=== PATIENT | male | born 1940 | race Caucasian/White ===

== ENCOUNTER 2017-09-20 10:05 | Inpatient (IN) | payer MEDICARE ==
[~2017-09-20] VITALS: Ht 182.9 cm; Wt 94.8 kg
[~2017-09-20 10:05] MED LIST: ADULT LOW DOSE81 MG PO; CARISOPRODOL 3350 MG PO; CENTRUM CARDIO1 EACH PO; CINNAMON; CIPROFLOXACIN500 M1 PO; GLUCOSA-CHOND-1 EACH; GLUCOSAMINE &1 EACH PO; GLYBURIDE 5 MG T5 M1 PO; LIPITOR; LIPITOR80 MG PO; METFORMIN HCL500 MG PO; NAPROSYN500 MG PO; NORCO 5-325 TA1 EACH PO; TRICOR; TRICOR145 MG PO; ZETIA10 MG PO; [UNRECOGNIZED DRUG - OTHER]
[2017-09-20 10:22] VITALS: BP 125/64
[2017-09-20] MEDS ORDERED: LEVOTHYROXINE100 MC1 PO (10:26)
[2017-09-20 10:57] LABS: INFLUENZA A ANTIGEN None Detected (None Detect); INFLUENZA B ANTIGEN None Detected (None Detect)
[2017-09-20 11:02] LABS: MCH 28.9 pg (26.0-34.0); MCHC 34.1 g/dL (28.0-37.0); MCV 84.5 fL (80.0-100.0); MPV 10.2 fl. (7.2-11.1); NUCLEATED RBCS 0 /100WBC; RDW-CV 14.9 % (10.5-14.5); WBC 9.2 thou/uL (4.0-11.0)
[2017-09-20 11:12] LABS: CALCIUM 9.2 mg/dL (8.5-10.1); CREATININE 1.2 mg/dL (0.6-1.3); POTASSIUM 3.8 mmol/L (3.5-5.1)
[2017-09-20 11:18] LABS: ALBUMIN 2.6 g/dL (3.4-5.0); MAGNESIUM 1.9 mg/dL (1.8-2.4); PHOSPHORUS* 3.8 mg/dL (2.5-4.9); TOTAL BILIRUBIN 4.5 mg/dL (<0.1-1.0); TOTAL PROTEIN 6.7 g/dL (6.4-8.2); TROPONIN-I LEVEL 0.32 ng/mL (<0.06)
[2017-09-20 11:26] LABS: ABSOLUTE EOSINOPHILS 0.1 thou/uL (0.0-0.7); ABSOLUTE LYMPHOCYTES 0.6 thou/uL (0.8-5.3); ABSOLUTE MONOCYTES 0.2 thou/uL (0.0-1.2); ABSOLUTE NEUTROPHILS 8.4 thou/uL (1.6-8.1); ATYPICAL LYMPHS 2 %
[2017-09-20 11:27] LABS: LARGE PLATELETS OCCASIONAL; PLATELET ESTIMATE DECREASED
[2017-09-20 12:18] LABS: PLATELET COUNT* 83 thou/uL (150-400)
[2017-09-20 14:33] LABS: URINE BLOOD 1+ (Negative); URINE CLARITY CLEAR; URINE COLOR YELLOW; URINE GLUCOSE-RANDOM 2+ (Negative); URINE KETONES NEGATIVE (Negative); URINE LEUKOCYTES-REFLEX NEGATIVE (Negative); URINE NITRITE-REFLEX NEGATIVE (Negative); URINE PROTEIN TRACE (Negative); URINE SPECIFIC GRAVITY <= 1.005 (1.005-1.030)
[2017-09-20 14:35] LABS: URINE BILIRUBIN 2+ (Negative)
[2017-09-20 14:36] LABS: ICTOTEST (BILI CONFIRMATORY) Positive (Negative)
[2017-09-20 14:45] LABS: BACTERIA-REFLEX None Seen /HPF (None Seen); HYALINE CASTS 0-3 Few /LPF (None Seen); URINE RBC 0-2 Rare /HPF (0-2); URINE WBC-REFLEX None Seen /HPF (0-5)
[2017-09-20 15:35] VITALS: BP 139/77
[2017-09-20 15:40] VITALS: BP 141/77
[2017-09-20] MEDS ORDERED: FISH OIL 1,001000 M2 PO (16:08)
--- NOTE | 2017-09-20 16:33 | EKG ---
[place] [address] ELECTROCARDIOGRAM REPORT Name: MANI ALANIZ Room: [address] ADM IN .R.#: [id number] Admission: 09/20/17 Attend Phys: Chayo Liao Discharge: Date of : 38 Report #: [id number] THIS REPORT FOR: //name// [facility] ED Test Date: 2017-09-20 Test Time: 10:39:19 Pat Name: MANI ALANIZ Department: Room: [facility] Gender: M Billing Checker: [place] : 1940 Requested By: Fuad Singleton Order Number: [id number] MD: Onesimo Plasencia Measurements Intervals [place] Rate: 72 P: 33 VA: 154 QRS: 58 QRSD: 124 T: 52 QT: 420 QTc: 460 Interpretive Statements Sinus rhythm Ventricular premature complex Probable left atrial enlargement Nonspecific intraventricular conduction delay Inferior infarct, old Compared to ECG 11/19/2009 17:34:14 Ventricular premature complex(es) now present Intraventricular conduction delay now present Myocardial infarct finding still present Electronically Signed On 09-20-2017 16:33:35 PRODUCT ENGINEER by Onesimo Plasencia [email or web address] <ELECTRONICALLY SIGNED> By: Onesimo Plasencia MD, FAC 09/20/17 1633 1039 1039 Onesimo Plasencia MD, FAC /EPI
[2017-09-20 17:09] LABS: ALBUMIN 2.8 g/dL (3.4-5.0); DIRECT BILIRUBIN 3.6 mg/dL (<0.1-0.3); TOTAL BILIRUBIN 4.6 mg/dL (<0.1-1.0)
[2017-09-20 20:19] VITALS: BP 128/74
[2017-09-21] VITALS: BP 143/98
[2017-09-21 04:00] VITALS: BP 162/73
[2017-09-21 05:33] LABS: ABSOLUTE BASOPHILS 0.1 thou/uL (0.0-0.2); ABSOLUTE LYMPHOCYTES 0.3 thou/uL (0.8-5.3); ABSOLUTE MONOCYTES 0.5 thou/uL (0.0-1.2); ABSOLUTE NEUTROPHILS 7.6 thou/uL (1.6-8.1); BASOPHILS 0.7 %; EOSINOPHILS 0.2 %; HEMATOCRIT 40.3 % (42.0-52.0); HEMOGLOBIN 13.8 gm/dL (14.0-18.0); LYMPHOCYTES 3.8 %; MCH 28.6 pg (26.0-34.0); MCHC 34.2 g/dL (28.0-37.0); MCV 83.7 fL (80.0-100.0); MONOCYTES 5.3 %; MPV 11.1 fl. (7.2-11.1); NUCLEATED RBCS 0 /100WBC; PLATELET COUNT* 83 thou/uL (150-400); RBC 4.81 mil/uL (4.50-6.00); RDW-CV 14.9 % (10.5-14.5); WBC 8.5 thou/uL (4.0-11.0)
[2017-09-21 06:40] LABS: ALBUMIN 2.1 g/dL (3.4-5.0); CALCIUM 8.3 mg/dL (8.5-10.1); CREATININE 1.1 mg/dL (0.6-1.3); POTASSIUM 3.8 mmol/L (3.5-5.1); TOTAL BILIRUBIN 3.4 mg/dL (<0.1-1.0); TOTAL PROTEIN 5.9 g/dL (6.4-8.2)
[2017-09-21 07:52] VITALS: BP 109/61
[2017-09-21 12:00] VITALS: BP 121/77
[2017-09-21 12:29] LABS: INR 1.1; PROTIME 10.9 Seconds (9.20-11.50)
--- NOTE | 2017-09-21 16:23 | 2DMMODE ---
[place] [address] 2 D/M-MODE ECHOCARDIOGRAM Name: MANI ALANIZ Room: [address] IN [facility]#: [id number] Admission: 09/20/17 Attend Phys: Jonny Poon Discharge: Date of : 38 Date of Service: 09/21/17 1622 Report #: [id number] THIS REPORT FOR: //name// APPROVED REPORT Study performed: 09/21/2017 11:31:21 EXAM: Comprehensive 2D, Doppler, and color-flow Echocardiogram Patient Location: In-Patient Room #: [facility] Status: routine BSA: 2.14 HR: 71 bpm BP: 109/61 mmHg Rhythm: NSR Other Information Study Quality: Good Indications Elevated Troponin dehydration, weakness 2D Dimensions LVEF(%): 22.15 (>50%) IVSd: 14.34 (7-11mm) LVOT Diam: 23.95 (18-24mm) LVDd: 57.95 mm PWd: 8.70 (7-11mm) Ascending Ao: 38.26 (22-36mm) LVDs: 51.98 (25-40mm) Aortic Root: 34.05 mm Garcia's LVEF: 22.15 % Volumes Left Atrial Volume (Systole) LA ESV Index: 37.60 mL/m2 Aortic Valve AoV Peak Galileo.: 1.30 m/s AO Peak Gr.: 6.71 mmHg LVOT Max P.12 mmHg AO Mean Gr.: 3.93 mmHg LVOT Mean P.78 mmHg LVOT Max V: 1.01 m/s AO V2 VTI: 25.53 cm LVOT Mean V: 0.60 m/s JL (VTI): 3.36 cm2 LVOT V1 VTI: 19.03 [place] [address] 2 D/M-MODE ECHOCARDIOGRAM Name: MANI ALANIZ Room: [address] IN [facility]#: [id number] Admission: 09/20/17 Attend Phys: Jonny Poon Discharge: Date of : 38 Date of Service: 09/21/17 1622 Report #: [id number] E/A Ratio: 0.75 MV Decel. Time: 203.05 ms MV E Max Galileo.: 0.61 m/s MV PHT: 58.88 ms MVA (PHT): 3.74 cm2 TDI E/Lateral E': 6.10 E/Medial E': 6.10 Medial E' Galileo.: 0.10 m/s Lateral E' Galileo.: 0.10 m/s Pulmonary Valve PV Peak Galileo.: 0.89 m/s PV Peak Gr.: 3.14 mmHg Tricuspid Valve TR Peak Gr.: 24.46 mmHg RVSP: 29.00 mmHg Left Ventricle The left ventricle is normal size. inferior wall is hypokinetic There is normal left ventricular wall thickness. Left ventricular systolic function is normal. The left ventricular ejection fraction is within the normal range. LVEF is 40-45%. Grade I - abnormal relaxation pattern. Right Ventricle The right ventricle is normal size. The right ventricular systolic function is normal. Atria Left atrium is mildly dilated. The right atrium size is normal. Aortic Valve The aortic valve is normal in structure. No aortic regurgitation is present. There is no aortic valvular stenosis. Mitral Valve The mitral valve is normal in structure. Mild mitral regurgitation. No evidence of mitral valve stenosis. Tricuspid Valve The tricuspid valve is normal in structure. Trace tricuspid regurgitation. The RVSP is ____29___ mmHg. Pulmonic Valve The pulmonary valve is normal in structure[place] [address] 2 D/M-MODE ECHOCARDIOGRAM Name: MANI ALANIZ Room: [address] IN ..#: [id number] Admission: 09/20/17 Attend Phys: Jonny Poon Discharge: Date of : 38 Date of Service: 09/21/17 1622 Report #: [id number] regurgitation. Great Vessels The aortic root is normal in size. IVC is normal in size and collapses with >50% inspiration Pericardium There is no pericardial effusion. <Conclusion> inferior wall is hypokinetic Grade I - abnormal relaxation pattern. Left atrium is mildly dilated. No aortic regurgitation is present. There is no aortic valvular stenosis. Mild mitral regurgitation. <ELECTRONICALLY SIGNED> By: Onesimo Plasencia MD, FACC 09/21/17 162 162 21 Onesimo Plasencia MD, FACC /INF
[2017-09-21 17:59] LABS: ABSOLUTE LYMPHOCYTES 0.8 thou/uL (0.8-5.3); ABSOLUTE MONOCYTES 0.9 thou/uL (0.0-1.2); ABSOLUTE NEUTROPHILS 7.7 thou/uL (1.6-8.1); BASOPHILS 0.5 %; EOSINOPHILS 0.5 %; HEMATOCRIT 41.2 % (42.0-52.0); LYMPHOCYTES 8.2 %; MCH 28.8 pg (26.0-34.0); MCHC 33.9 g/dL (28.0-37.0); MCV 85.1 fL (80.0-100.0); MONOCYTES 9.3 %; MPV 10.6 fl. (7.2-11.1); NUCLEATED RBCS 0 /100WBC; PLATELET COUNT* 85 thou/uL (150-400); POLYS 81.5 %; RBC 4.85 mil/uL (4.50-6.00); RDW-CV 15.2 % (10.5-14.5); WBC 9.4 thou/uL (4.0-11.0)
[2017-09-21 18:10] LABS: ALBUMIN 2.1 g/dL (3.4-5.0); CALCIUM 8.5 mg/dL (8.5-10.1); CREATININE 1.3 mg/dL (0.6-1.3); POTASSIUM 3.9 mmol/L (3.5-5.1); TOTAL BILIRUBIN 3.2 mg/dL (<0.1-1.0); TOTAL PROTEIN 6.2 g/dL (6.4-8.2)
[2017-09-21 20:00] VITALS: BP 127/61
[2017-09-22] VITALS (12 sets, daily range): BP systolic 114–152; BP diastolic 63–94
[2017-09-22 02:06] LABS: HEPATITIS B SURFACE AG Negative (Negative)
[2017-09-22 06:34] LABS: ABSOLUTE EOSINOPHILS 0.1 thou/uL (0.0-0.7); ABSOLUTE LYMPHOCYTES 1.1 thou/uL (0.8-5.3); ABSOLUTE MONOCYTES 1.1 thou/uL (0.0-1.2); ABSOLUTE NEUTROPHILS 6.8 thou/uL (1.6-8.1); BASOPHILS 0.4 %; EOSINOPHILS 1.1 %; HEMATOCRIT 38.2 % (42.0-52.0); HEMOGLOBIN 12.9 gm/dL (14.0-18.0); LYMPHOCYTES 11.8 %; MCH 28.7 pg (26.0-34.0); MCHC 33.7 g/dL (28.0-37.0); MONOCYTES 12.4 %; NUCLEATED RBCS 0 /100WBC; PLATELET COUNT* 88 thou/uL (150-400); POLYS 74.3 %; RDW-CV 15.1 % (10.5-14.5); WBC 9.2 thou/uL (4.0-11.0)
[2017-09-22 06:49] LABS: CALCIUM 8.3 mg/dL (8.5-10.1); CREATININE 1.2 mg/dL (0.6-1.3); POTASSIUM 3.6 mmol/L (3.5-5.1); TOTAL BILIRUBIN 2.6 mg/dL (<0.1-1.0); TOTAL PROTEIN 5.8 g/dL (6.4-8.2)
--- NOTE | 2017-09-22 10:53 | CON ---
[address] [address] CONSULTATION Name: CORBINMANI E Room: [address] IN M.R.#: [id number] Admission: 09/20/17 Attend Phys: Chayo Liao Discharge: Date of : 38 Report #: [id number] THIS REPORT FOR: //name// CC: Husam Poon DATE OF SERVICE: 09/21/2017 INFECTIOUS DISEASE CONSULTATION ATTENDING PHYSICIAN: Dr. Poon. REASON FOR EVALUATION: Gram-negative septicemia. HISTORY OF PRESENT ILLNESS: Chart reviewed, patient examined. This is a 77-year-old gentleman with known diabetes mellitus that has been complicated by vasculopathy, who has been ill number of weeks, although it worsened over the course of the last 1-2 weeks, developed weakness and fairly profound weight loss that has been marked and did have what sounds like true rigors, right upper quadrant abdominal related pain, was found to have dark urine and somewhat pale stools. Evaluation confirmed hyperbilirubinemia, elevated hepatic transaminases. Imaging studies including CT of the abdomen and pelvis showed left lobe liver lesion, possible cyst, also hepatosplenomegaly with gallbladder sludge and mild gallbladder wall thickening. MRCP is pending. He denies any particular exposure history. He had traveled recently on a cruise to the [place]. Apparently, he did have one meal of tilapia and empirically started on piperacillin and tazobactam. The blood cultures now are growing Gram-negative rods, roughly 24 hours. ALLERGIES: None known. MEDICATIONS: Include metformin, glucagon, aspirin, Zosyn, multivitamin, levothyroxine, glyburide. PAST MEDICAL HISTORY: Has known diabetes mellitus type 2, has vasculopathy with coronary artery disease, previous stenting, high cholesterol, renal lithiasis, history of skin cancers. SOCIAL HISTORY: Former smoker. No ethanol. FAMILY HISTORY: Noncontributory. REVIEW OF SYSTEMS: As above. He denies significant change in his pulmonary status. As noted above, has weight loss, [place] [address] CONSULTATION Name: MANI ALANIZ Room: [address]#: [id number] Admission: 09/20/17 Attend Phys: Chayo Liao Discharge: Date of : 38 Report #: [id number] PHYSICAL EXAMINATION: Alert, appears somewhat chronically ill, undernourished, is pleasant, cooperative. LABORATORY DATA: Influenza antigen was negative. Electrolytes: Sodium 131, potassium 3.8, chloride 95, bicarbonate is 26, anion gap of 10, BUN and creatinine 25 and 1.2, glucose of 357. AST of 83, ALT of 245. Total bilirubin of 4.5, albumin of 2.6. Total protein of 6.7. Estimated GFR 59. CRP of 284.6. Lactic acid of 1.7. Chest x-ray showed no acute process. CT abdomen and pelvis as noted above in his ultrasound. Urinalysis unremarkable, 0 white cells. ASSESSMENT: Gram-negative septicemia, presume biliary tract source, certainly has features of cholangitis pending MRCP would be worried about obstructive process. Obviously, the infection secondary to some sort of other issue can entirely exclude malignancy. We will see how he does clinically and response to the antimicrobials given appears to be extended duration as well as fairly profound weight loss at this point certainly raises questions. We will discuss with Dr. Poon. <ELECTRONICALLY SIGNED> By: Luciano Bush MD 09/22/17 1053 1544 0233Jochris Bush MD /nt
[2017-09-22 13:11] LABS: IgM 63 mg/dL (15-143)
--- NOTE | 2017-09-22 15:40 | CARDNUC ---
[place] [address] CARDIAC NUCLEAR IMAGING REPORT Name: MANI ALANIZ Room: [address]#: [id number] Admission: 09/20/17 Attend Phys: Jonny Poon Discharge: Date of : 38 Date of Service: 09/22/17 1540 Report #: [id number] THIS REPORT FOR: //name// APPROVED REPORT Exam: Nuclear Stress Test Indication: elevated troponins Patient Location: In-Patient Stress Tech: Dory Powers Stress Nurse: Monse Chambers RN Ht: 6 ft 0 in Wt: 211 lbs BSA: 2.18 m2 BMI: 28.61 Medical History Medical History: mi, hyperlipidemia, cad, pci dibetes Medications: carvedilol, aspirin 81 Allergies: nkda Cardiac Risk Factors: age, hyperlipidemia, diabetes Previous Cardiac Procedures: pci with stents Exercise History: Sedentary Meds Held (24 hrs): carvedilol held since in am Stress Test Details Stress Test: Pharmacologic stress testing performed using 0.4 mg of regadenoson per 5 mL given IV over 10 seconds. Reversal agent Aminophyline 50 mg, given intravenously for other. HR Resting HR: 67 bpm Max Heart Rate (APMHR): 142 bpm Max HR Achieved: 71 bpm Target HR (85% APMHR): 120 bpm % of APMHR: 50 Recovery HR: 66 bpm HR response to stress: Normal HR response to stress BP Resting BP: 108/75 mmHg Max BP: 118/58 mmHg BP response to stress: Normal blood pressure response to stress. ECG Resting ECG: Sinus Rhythm Stress ECG: [place] [address] CARDIAC NUCLEAR IMAGING REPORT Name: MANI ALANIZ Room: [address]#: [id number] Admission: 09/20/17 Attend Phys: Jonny Poon Discharge: Date of : 38 Date of Service: 09/22/17 1540 Report #: [id number] Change: None Recovery ECG: Sinus Rhythm Recovery ST Change: None Clinical Reason for Termination: Completed protocol Stress Symptoms: abdominal pain Exercise duration: 01 min sec Functional Aerobic Impairment 50% Nurse Comments pain co upper abdominal pain after injection of lexiscan, relieved with aminophylline. Aminophyllline given ivp becasue pt was to remain npo for other testing today. Stress ECG Conclusion neg. ecg NM EXAM: Myocardial Perfusion REST/STRESS Imaging Protocol: Rest Tc-99m/Stress Tc-99m 1 day Resting Data Rest SPECT myocardial perfusion imaging was performed in supine position 40 minutes following the intravenous injection of 10.9 mCi of Tc-99m Sestamibi. Time of rest injection: 0800 Time of rest imagin The images were gated to evaluate regional wall motion and calculate left ventricular ejection fraction. Administration Route: IV Administration Site: Right AC Pharmacologic Stress Pharmacologic stress test was performed by injecting Regadenoson 0.4 mg IV push followed by the intravenous injection of 31.9 mCi of Tc-99m Sestamibi. Time of stress injection: 0940 Time of stress imagin Administration Route: IV Administration Site: Right Arm Heart Rate at time of stress injection: 71 bpm. Gated Stress SPECT was performed 40 minutes after stress injection. The images were gated to evaluate regional wall motion and calculate left [place] [address] CARDIAC NUCLEAR IMAGING REPORT Name: CORBINMANI E Room: [address]#: [id number] Admission: 09/20/17 Attend Phys: Jonny Poon Discharge: Date of : 38 Date of Service: 09/22/17 1540 Report #: [id number] Study Quality Study: Fair Artifact: Mild Diaphragmatic artifact Lung Uptake: Normal Study Data At rest, the left ventricular ejection fraction was 47%.. Post stress, the left ventricular ejection was 48%.. SSS: 13 SRS: 13 SDS: 0 TID = 1.10. Perfusion There is a large fixed inferior defect seen on stress and rest images. Normal perfusion is seen in other segments. No reversible defects are seen. Prone imaging was not able to be performed. Images were reviewed using [employer]. Wall Motion inf. hypokinesis Nuclear Conclusion ECG Findings: negative for ischemia Clinical Findings: negative for ischemia Nuclear Findings: negative for ischemia Exercise Capacity: not assessed Left Ventricular Function: low normal Risk Study: moderate Evidence of prior inferior [place],without ischemia present. <Conclusion> neg. ecg <ELECTRONICALLY SIGNED> By: Onesimo Plasencia MD, FACC 09/22/17 1540 1540 1540 Onesimo Plasencia MD, FACC /INF
[2017-09-22 19:13] LABS: EBV EA IgG <9.0 U/mL (0.0-8.9); EBV VCA IgM <36.0 U/mL (0.0-35.9); IgG 580 mg/dL (700-1600)
[2017-09-22 19:23] LABS: URINE BILIRUBIN NEGATIVE (Negative); URINE BLOOD TRACE (Negative); URINE CLARITY CLEAR; URINE COLOR YELLOW; URINE GLUCOSE-RANDOM 2+ (Negative); URINE KETONES NEGATIVE (Negative); URINE LEUKOCYTES-REFLEX NEGATIVE (Negative); URINE NITRITE-REFLEX NEGATIVE (Negative); URINE PROTEIN TRACE (Negative); URINE SPECIFIC GRAVITY 1.015 (1.005-1.030)
[2017-09-22 22:10] LABS: CMV IgM Abs <30.0 AU/mL (0.0-29.9)
[2017-09-23] VITALS (7 sets, daily range): BP systolic 125–153; BP diastolic 67–82
[2017-09-23 05:24] LABS: ABSOLUTE BASOPHILS 0.1 thou/uL (0.0-0.2); ABSOLUTE EOSINOPHILS 0.1 thou/uL (0.0-0.7); ABSOLUTE LYMPHOCYTES 1.1 thou/uL (0.8-5.3); ABSOLUTE MONOCYTES 1.1 thou/uL (0.0-1.2); ABSOLUTE NEUTROPHILS 7.9 thou/uL (1.6-8.1); BASOPHILS 0.8 %; EOSINOPHILS 0.9 %; HEMATOCRIT 39.2 % (42.0-52.0); HEMOGLOBIN 13.3 gm/dL (14.0-18.0); LYMPHOCYTES 10.5 %; MCH 28.9 pg (26.0-34.0); MCHC 34.1 g/dL (28.0-37.0); MCV 84.8 fL (80.0-100.0); MPV 11.2 fl. (7.2-11.1); NUCLEATED RBCS 0 /100WBC; PLATELET COUNT* 106 thou/uL (150-400); POLYS 76.8 %; RBC 4.62 mil/uL (4.50-6.00); RDW-CV 15.3 % (10.5-14.5); WBC 10.3 thou/uL (4.0-11.0)
[2017-09-23 05:35] LABS: ALBUMIN 1.9 g/dL (3.4-5.0); CALCIUM 8.1 mg/dL (8.5-10.1); POTASSIUM 3.6 mmol/L (3.5-5.1); TOTAL BILIRUBIN 2.3 mg/dL (<0.1-1.0); TOTAL PROTEIN 5.9 g/dL (6.4-8.2)
[2017-09-23 06:18] LABS: CHOLESTEROL 104 mg/dL (<200); HDL CHOLESTEROL 14 mg/dL (>40); LDL CHOLESTEROL 61 mg/dL (<100); SERUM ASSESSMENT Clear; TC:HDL 7.4 Ratio (Not establshd); TRIGLYCERIDE 149 mg/dL (<150); VLDL 30 mg/dL (<40)
[2017-09-24 00:03] VITALS: BP 132/66
[2017-09-24 04:00] VITALS: BP 131/73
[2017-09-24 05:57] LABS: ABSOLUTE BASOPHILS 0.1 thou/uL (0.0-0.2); ABSOLUTE EOSINOPHILS 0.1 thou/uL (0.0-0.7); ABSOLUTE LYMPHOCYTES 1.4 thou/uL (0.8-5.3); ABSOLUTE MONOCYTES 0.9 thou/uL (0.0-1.2); ABSOLUTE NEUTROPHILS 7.4 thou/uL (1.6-8.1); BASOPHILS 1.1 %; EOSINOPHILS 0.9 %; HEMATOCRIT 37.9 % (42.0-52.0); HEMOGLOBIN 12.7 gm/dL (14.0-18.0); LYMPHOCYTES 13.9 %; MCH 28.8 pg (26.0-34.0); MCHC 33.6 g/dL (28.0-37.0); MCV 85.6 fL (80.0-100.0); MONOCYTES 8.9 %; MPV 10.6 fl. (7.2-11.1); NUCLEATED RBCS 0 /100WBC; PLATELET COUNT* 117 thou/uL (150-400); POLYS 75.2 %; RBC 4.42 mil/uL (4.50-6.00); RDW-CV 15.2 % (10.5-14.5); WBC 9.8 thou/uL (4.0-11.0)
[2017-09-24 06:25] LABS: ALBUMIN 1.7 g/dL (3.4-5.0); CALCIUM 8.1 mg/dL (8.5-10.1); POTASSIUM 4.1 mmol/L (3.5-5.1); TOTAL BILIRUBIN 1.6 mg/dL (<0.1-1.0); TOTAL PROTEIN 5.7 g/dL (6.4-8.2)
[2017-09-24 08:30] VITALS: BP 121/67
[2017-09-24 12:00] VITALS: BP 145/74
[2017-09-24 16:00] VITALS: BP 141/78
[2017-09-24 20:00] VITALS: BP 147/51
[2017-09-25] VITALS: BP 148/77
[2017-09-25 04:00] VITALS: BP 129/64
[2017-09-25 05:08] LABS: ABSOLUTE BASOPHILS 0.1 thou/uL (0.0-0.2); ABSOLUTE EOSINOPHILS 0.2 thou/uL (0.0-0.7); ABSOLUTE LYMPHOCYTES 1.5 thou/uL (0.8-5.3); ABSOLUTE MONOCYTES 0.8 thou/uL (0.0-1.2); ABSOLUTE NEUTROPHILS 8.9 thou/uL (1.6-8.1); BASOPHILS 1.2 %; EOSINOPHILS 1.6 %; HEMATOCRIT 36.9 % (42.0-52.0); HEMOGLOBIN 12.4 gm/dL (14.0-18.0); LYMPHOCYTES 12.9 %; MCH 28.7 pg (26.0-34.0); MCHC 33.6 g/dL (28.0-37.0); MCV 85.4 fL (80.0-100.0); MONOCYTES 6.9 %; MPV 10.4 fl. (7.2-11.1); NUCLEATED RBCS 0 /100WBC; PLATELET COUNT* 152 thou/uL (150-400); POLYS 77.4 %; RBC 4.32 mil/uL (4.50-6.00); RDW-CV 15.1 % (10.5-14.5); WBC 11.4 thou/uL (4.0-11.0)
[2017-09-25 05:43] LABS: ALBUMIN 1.7 g/dL (3.4-5.0); CREATININE 0.9 mg/dL (0.6-1.3); POTASSIUM 3.7 mmol/L (3.5-5.1); TOTAL BILIRUBIN 1.1 mg/dL (<0.1-1.0); TOTAL PROTEIN 5.7 g/dL (6.4-8.2)
[2017-09-25 09:30] VITALS: BP 122/64
[2017-09-25 12:00] VITALS: BP 133/92
[2017-09-25 16:00] VITALS: BP 146/71
[2017-09-25 20:00] VITALS: BP 149/71
[2017-09-26] VITALS (7 sets, daily range): BP systolic 107–153; BP diastolic 57–88
[2017-09-26 05:25] LABS: HEMATOCRIT 36.1 % (42.0-52.0); MCH 28.5 pg (26.0-34.0); MCHC 33.3 g/dL (28.0-37.0); MCV 85.4 fL (80.0-100.0); MPV 10.1 fl. (7.2-11.1); RBC 4.22 mil/uL (4.50-6.00); RDW-CV 15.1 % (10.5-14.5); WBC 11.4 thou/uL (4.0-11.0)
[2017-09-26 05:39] LABS: ALBUMIN 1.7 g/dL (3.4-5.0); CREATININE 0.9 mg/dL (0.6-1.3); MAGNESIUM 1.7 mg/dL (1.8-2.4); POTASSIUM 3.8 mmol/L (3.5-5.1); TOTAL PROTEIN 5.6 g/dL (6.4-8.2)
[2017-09-26 11:17] LABS: CALCIUM 8.4 mg/dL (8.5-10.1); CREATININE 0.9 mg/dL (0.6-1.3); MAGNESIUM 1.8 mg/dL (1.8-2.4)
[2017-09-27 04:00] VITALS: BP 143/64
[2017-09-27 05:32] LABS: ABSOLUTE BASOPHILS 0.1 thou/uL (0.0-0.2); ABSOLUTE EOSINOPHILS 0.2 thou/uL (0.0-0.7); ABSOLUTE LYMPHOCYTES 1.5 thou/uL (0.8-5.3); ABSOLUTE MONOCYTES 0.7 thou/uL (0.0-1.2); ABSOLUTE NEUTROPHILS 8.6 thou/uL (1.6-8.1); BASOPHILS 0.6 %; EOSINOPHILS 2.2 %; HEMOGLOBIN 12.7 gm/dL (14.0-18.0); MCH 28.3 pg (26.0-34.0); MCHC 33.6 g/dL (28.0-37.0); MCV 84.5 fL (80.0-100.0); MONOCYTES 6.7 %; MPV 10.2 fl. (7.2-11.1); NUCLEATED RBCS 0 /100WBC; PLATELET COUNT* 228 thou/uL (150-400); POLYS 77.5 %; RDW-CV 15.4 % (10.5-14.5); WBC 11.2 thou/uL (4.0-11.0)
[2017-09-27 05:45] LABS: ALBUMIN 1.9 g/dL (3.4-5.0); CALCIUM 8.3 mg/dL (8.5-10.1); CREATININE 0.8 mg/dL (0.6-1.3); POTASSIUM 4.1 mmol/L (3.5-5.1); TOTAL PROTEIN 6.1 g/dL (6.4-8.2)
[2017-09-27 08:18] VITALS: BP 128/71
[2017-09-27 11:34] VITALS: BP 132/74
[2017-09-27 13:41] VITALS: BP 126/72
[2017-09-27 13:45] VITALS: BP 126/72
[2017-09-27] MEDS ORDERED: AMOXICILLIN 50500 MG PO (13:53)
[2017-09-27 15:34] VITALS: BP 151/81
[2017-09-27 18:07] LABS: ANA INTERPRETATION Negative (())
--- NOTE | 2017-09-30 15:03 | S ---
[place] [address] SURGICAL PATH RPT PROCEDURE Name: MANI ALANIZ Room: [address] IN M.R.#: [id number] Admission: 09/20/17 Date of : 38 Discharge: 09/27/17 Report #: [id number] Path Case #: [id number] PATHOLOGY REPORT COLLECTION DATE: 09/22/2017 RECEIVED DATE: 09/22/2017 SUBMITTING PHYS: Dr. Costa Stewrat OTHER PHYS: Dr. Husam Cheema ADDENDUM REPORT (Order Date: 09/27/2017 00:00) ADDENDUM COMMENT: Please see next page for scanned image of report submitted by [facility] systems management consultant pathologist, Genesis RamosB.S. (HARRY:kinjal; d/t: 09/29/2017) ELECTRONICALLY SIGNED BY: Giuliano Guillen M.D. DATE/TIME:09/30/2017 15:02 SPECIMEN(S) RECEIVED: A.Liver, needle biopsy * * * * * * * * * * * * FINAL DIAGNOSIS: Liver, image guided needle biopsies: - Benign liver with evidence of steatohepatitis, suggestion of acute cholangitis, mild portal inflammation including eosinophils and plasma cells and mild increase of parenchymal iron. See comment. COMMENT: There is approximately 20% macrovesicular steatosis with evidence of steatohepatitis and within the mildly inflamed portal tracts, in addition to neutrophils in association with bile ducts, are easily identified eosinophils and plasma cells the significance of which is uncertain. Tosha's hyaline and bile stasis is not evident. Appropriately controlled special stains performed on A1 show the following results: Iron mild parenchymal increase Trichrome minimal pericellular fibrosis, no evidence of cirrhosis Reticulin hepatic plates preserved, no evidence of cirrhosis PAS with and without diastase no globules identified This case will be submitted to the [facility] Department of Hepatopathology for further assessment and an addendum report will be issued. (HARRY:gopal; 09/23/2017) [place] [address] SURGICAL PATH RPT PROCEDURE Name: MANI ALANIZ Room: [address] IN ..#: [id number] Admission: 09/20/17 Date of : 38 Discharge: 09/27/17 Report #: [id number] Path Case #: [id number] PATHOLOGIST: Giuliano Guillen M.D. REPORT ELECTRONICALLY SIGNED BY: Giuliano Guillen M.D. DATE/TIME: 09/23/2017 15:48 * * * * * * * * * * * * GROSS PATHOLOGY: Received in formalin labeled "Mani Alaniz liver BX" and consists of 5 brown tissue cores ranging in size from 0.3 by less than 0.1 cm-1.5 by less than 0.1 cm. The specimen is entirely submitted in one cassette A1. (JESUSITA; 09/22/2017) CLINICAL HISTORY: Elevated LFTs, jaundice INITIAL CPT CODE(S): A; 39593, 57211, 50785, 60408, 78110, 99164 Professional services performed [place] [facility] [place] [address] Technical services performed by [facility] at [address] [place] [address], [address], [place] [address]. [facility] [address] [place] [address] PHONE: [phone] DIRECTOR: Bobby Clark M.D. * * * END OF REPORT * * *
--- NOTE | 2017-10-09 17:45 | CON ---
[address] [address] CONSULTATION Name: ALANIZMANI Liao Room: [address] IN M.R.#: [id number] Admission: 09/20/17 Attend Phys: Chayo Liao Discharge: 09/27/17 Date of : 38 Report #: [id number] THIS REPORT FOR: //name// CC: Husam Poon DO DATE OF SERVICE: 09/27/2017 ADDENDUM REFERRING PHYSICIAN: Dr. Jonny Poon. I have seen and examined the patient and agree with plans that have been outlined by our nurse practitioner, Mari Hamilton. At this time, there is nothing to suggest he has biliary obstruction or symptomatic gallbladder disease, but he had had some episodes of rather severe abdominal pain associated with fever and chills at home. Whether this represents resolving cholangitis or viral illness such as EBV or CMV causing his joint aches, pains, fatigue, etc. is unclear. Other possibility would be autoimmune liver disease or primary biliary cholangitis. For this reason, we will order serologic studies to rule out all these possibilities. In addition, we will schedule the patient for an ultrasound-guided liver biopsy to be done tomorrow. With regards to severe weakness and strength, we will check a CPK to make sure he is not dealing with any problems like polymyositis or any other problems. We will continue to follow while the patient is in the hospital and make further recommendations thereafter. <ELECTRONICALLY SIGNED> By: Curry Cheema DO 10/09/17 1745 1636 1653Gconor Cheema DO /nt
--- NOTE | 2017-11-17 15:14 | CON ---
[address] [address] CONSULTATION Name: CORBINMANI Keshawn Room: [address] IN M.R.#: [id number] Admission: 09/20/17 Attend Phys: Chayo Liao Discharge: 09/27/17 Date of : 38 Report #: [id number] THIS REPORT FOR: //name// CC: Husam Poon DICTATED BY: Mari Hamilton [facility] DATE OF SERVICE: 09/21/2017 PRIMARY CARE PHYSICIAN: Dr. Husam Monge. Please note at the time of this dictation, the patient was seen and physically examined by myself. REASON FOR CONSULTATION: Elevated LFTs and jaundice. HISTORY OF PRESENT ILLNESS: This is a pleasant 77-year-old male who presented to the Emergency Room with increasing weakness. He noticed that his urine was much darker. His stools were looser over the past week, but no change in color that he noted. He has really had a decreased appetite. He has also had some chills and body aches. He states since the middle part of August, he has lost about 10 pounds. He denies any nausea or vomiting, but he does have an occasional episode of some acid reflux. The patient states he did have a colonoscopy done in the past. He does not recall ever having the EGD, it was done out he thinks at [facility] or with [facility], and we will attempt to get those records for further evaluation. He states everything was normal at that time. He states prior to all of this occurring over the past week that he has been sick, his bowel habits are normal, they are daily like clockwork, soft and formed with no evidence of any bright red blood or any melenic stool. He has never been told that he has had anything going on with his liver before except that he had a cyst that was noted back in 2010 that he was told it was benign. ALLERGIES: No known drug allergies. MEDICATIONS: From home include Lipitor, aspirin, metformin, Synthroid, fish oil, glyburide and multivitamin. PAST MEDICAL HISTORY: Diabetes, heart disease and a complex cyst. CO and history of stent placement and a history of skin cancer. PAST SURGICAL HISTORY: Would include kidney stone. He had a left knee surgery, cataract surgery and sinus surgery. FAMILY HISTORY: [place] [address] CONSULTATION Name: ALANIZMANI Keshawn Room: [address]#: [id number] Admission: 09/20/17 Attend Phys: Chayo Liao Discharge: 09/27/17 Date of : 38 Report #: [id number] SOCIAL HISTORY: Lives with his . Denies any alcohol, tobacco or illegal drug use. REVIEW OF SYSTEMS: Twelve-point review of systems is essentially negative except what is mentioned in the HPI. PHYSICAL EXAMINATION: VITAL SIGNS: Temperature 37, pulse 78, respirations 18, blood pressure 109/61. HEART: Regular rate and rhythm. LUNGS: Clear. ABDOMEN: Soft, positive bowel sounds in all 4 quadrants, with epigastric to right upper quadrant tenderness noted to palpation. LABORATORY DATA: Hemoglobin is 13.8, hematocrit 40.3, white count is 8.5, platelets 83. Sodium 134, potassium 3.8, chloride 100, CO2 of 24, BUN is 24, creatinine is 1.1, GFR 65 and a glucose of 270. His total bilirubin on admission was 4.5, is down to 3.4. Alkaline phosphatase 254, he is up to 283. ALT 256 on admission, down to 180. AST was 90, down to 75. It is also noted that his CPK and troponin were slightly elevated, and Cardiology is seeing the patient as well. CT showed a complex cyst previously. CT of the abdomen and pelvis showed mild diffuse wall thickening of the gallbladder, liver shows some lobulated multicystic work complex low density mass in the left lobe and a unilocular cystic appearing since 2010, is minimally larger, scattered diverticula noted. Ultrasound done shows liver to be mildly enlarged, diffuse increase in echogenicity, hepatic steatosis, and then, there is a lesion noted, multispiculated cystic lesion noted. Gallbladder showed some sludge with mild gallbladder wall thickening and a trace amount of some pericholecystic fluid. No shadowing or calculi noted and no bile duct dilatation noted. IMPRESSION: 1. Elevated liver function tests. 2. Jaundice. 3. Thrombocytopenia. 4. Hepatic steatosis. 5. Gallbladder sludge with some wall thickening. 6. History of stents. PLAN: 1. Labs, AFP, PT/INR, acute hepatitis panel. 2. MRCP to get a better evaluation of his biliary tree and liver. 3. Obtain records from [facility]. 4. Further recommendations to be made once the above have been reviewed. Thank you for allowing us to participate in this patient's care. Please do not hesitate to call with any questions in regard to this consultation. [address] [address] CONSULTATION Name: MANI ALANIZ Room: [address] IN .R.#: [id number] Admission: 09/20/17 Attend Phys: Jonny RothChayo Dupont Discharge: 09/27/17 Date of : 38 Report #: [id number] ADDENDUM I have seen and examined the patient and agree with plans that have been outlined by our nurse practitioner, Mari Hamilton. At this time, there is nothing to suggest he has biliary obstruction or symptomatic gallbladder disease, but he had had some episodes of rather severe abdominal pain associated with fever and chills at home. Whether this represents resolving cholangitis or viral illness such as EBV or CMV causing his joint aches, pains, fatigue, etc. is unclear. Other possibility would be autoimmune liver disease or primary biliary cholangitis. For this reason, we will order serologic studies to rule out all these possibilities. In addition, we will schedule the patient for an ultrasound-guided liver biopsy to be done tomorrow. With regards to severe weakness and strength, we will check a CPK to make sure he is not dealing with any problems like polymyositis or any other problems. We will continue to follow while the patient is in the hospital and make further recommendations thereafter. <ELECTRONICALLY SIGNED> By: Curry Cheema DO 11/17/17 1514 1247 [id number] Cheema DO /nt
== END 2017-09-27 16:40 | disposition home health service (06) | DRG 871 ==
LOC: M.ERS 10:05 → M.TBA-ER 12:57 → M.2W 12:57
PROVIDERS: Emergency Medicine; Family Medicine; Internal Medicine Cardiovascular Disease; Internal Medicine Gastroenterology; Nurse Practitioner Adult Health; ADMIT Internal Medicine
PROC: 0FB03ZX Excision of Liver, Percutaneous Approach, Diagnostic (ICD-10-PCS; principal; 2017-09-22)
DX: A41.59 Other Gram-negative sepsis (principal); K83.1 Obstruction of bile duct; E43 Unspecified severe protein-calorie malnutrition; G92 Toxic encephalopathy; K83.0 Cholangitis; E86.0 Dehydration; E78.00 Pure hypercholesterolemia, unspecified; E87.5 Hyperkalemia; D69.6 Thrombocytopenia, unspecified; K76.0 Fatty (change of) liver, not elsewhere classified; K82.8 Other specified diseases of gallbladder; R32 Unspecified urinary incontinence; E03.9 Hypothyroidism, unspecified; E11.65 Type 2 diabetes mellitus with hyperglycemia; R33.9 Retention of urine, unspecified; G94 Other disorders of brain in diseases classified elsewhere; I25.10 Atherosclerotic heart disease of native coronary artery without angina pectoris; I25.2 Old myocardial infarction; Z95.5 Presence of coronary angioplasty implant and graft; Z87.442 Personal history of urinary calculi; Z98.42 Cataract extraction status, left eye; Z98.41 Cataract extraction status, right eye; Z85.828 Personal history of other malignant neoplasm of skin; Z79.899 Other long term (current) drug therapy; Z79.82 Long term (current) use of aspirin; Z87.891 Personal history of nicotine dependence; Z82.49 Family history of ischemic heart disease and other diseases of the circulatory system; Z83.3 Family history of diabetes mellitus; Z68.28 Body mass index [BMI] 28.0-28.9, adult; Z85.51 Personal history of malignant neoplasm of bladder; Z91.81 History of falling

== ENCOUNTER → 2017-10-25 | Outpatient (CLI) | payer MEDICARE ==
[~2017-10-25] MED LIST changes: +AMOXICILLIN 50500 MG PO; +FISH OIL 1,001000 M2 PO; +LEVOTHYROXINE100 MC1 PO
== END ==
LOC: M.MRI 06:59
DX: K76.89 Other specified diseases of liver (principal); R79.89 Other specified abnormal findings of blood chemistry; R93.8 Abnormal findings on diagnostic imaging of other specified body structures

== ENCOUNTER → 2018-09-06 | Emergency (ER) | payer MEDICARE ==
[~2018-09-06] VITALS: Ht 182.9 cm; Wt 99.8 kg
[~2018-09-06] MED LIST changes: +LANTUS SUBQ
--- NOTE | 2018-09-06 17:52 | EKG ---
[place] [address] ELECTROCARDIOGRAM REPORT Name: CORBINMANI Keshawn Room: [facility]#: [id number] Admission: 09/06/18 Attend Phys: Discharge: Date of : 38 Report #: [id number] THIS REPORT FOR: //name// [facility] ED Test Date: 2018-09-06 Test Time: 15:52:17 Pat Name: MANI ALANIZ Department: Room: Gender: M Manager Program: LEANDRO : 1940 Requested By: Linda Moran Order Number: [id number] MD: Topher Mann Measurements Intervals [place] Rate: 66 P: 20 [place]: 176 QRS: 58 QRSD: 120 T: 29 QT: 403 QTc: 423 Interpretive Statements Sinus rhythm Possible left atrial enlargement Inferior infarct, old Compared to ECG 09/20/2017 10:39:19 Ventricular premature complex(es) no longer present Myocardial infarct finding still present Electronically Signed On 09-06-2018 17:52:12 PUBLIC SPEAKING COACH by Topher Mann [email or web address] <ELECTRONICALLY SIGNED> By: Topher Mann MD, [facility] 09/06/18 1752 1552 155 Topher Mann MD, FACC /EPI
[2018-09-06 18:22] VITALS: BP 142/68
== END ==
LOC: M.ERS 15:37
DX: S01.112A Laceration without foreign body of left eyelid and periocular area, initial encounter (principal); S60.212A Contusion of left wrist, initial encounter; E78.00 Pure hypercholesterolemia, unspecified; E11.9 Type 2 diabetes mellitus without complications; Z87.442 Personal history of urinary calculi; Z85.828 Personal history of other malignant neoplasm of skin; W18.39XA Other fall on same level, initial encounter; Y93.89 Activity, other specified; Y92.89 Other specified places as the place of occurrence of the external cause; Y99.8 Other external cause status

== ENCOUNTER 2019-08-11 16:52 | Inpatient (IN) | payer MEDICARE ==
[~2019-08-11] VITALS: Ht 185.4 cm; Wt 102.5 kg
--- NOTE | ~2019-08-11 | EEG ---
[address] [address] EEG STUDY REPORT Name: MANI ALANIZ Room: [address] IN .#: [id number] Admission: 08/11/19 Attend Phys: Chayo Liao Discharge: Date of : 38 Report #: [id number] THIS REPORT FOR: //name// CC: Alison Poon DATE OF SERVICE: 08/14/2019 This patient is being evaluated for altered mental status. EEG was done by placing the electrode by standard 10-20 system of electrode placement. Both referential and sequential montages were used for recording. Background activity in this patient's EEG is about 10 Hz and 30 microvolts. The patient became drowsy and that is associated with bilateral slowing and vertex sharp waves. Photic stimulation was unremarkable. Throughout the record, no active epileptiform activity was noticed. IMPRESSION: This patient's EEG is within normal limit. Thank you very much for this referral. By: [id number] Burgos MD /nt
--- NOTE | ~2019-08-11 | CON ---
[facility] [address] [place] [address] CONSULTATION Name: MANI ALANIZ Room: [address] IN .R.#: [id number] Admission: 08/11/19 Attend Phys: Chayo Liao Discharge: Date of : 38 Report #: [id number] THIS REPORT FOR: //name// CC: Alison Poon DATE OF SERVICE: 08/14/2019 HISTORY OF PRESENT ILLNESS: This is an 79-year-old male patient who was seen by me for altered mental status and ataxia. This patient gives a history that he has a longstanding history of neuropathy. He indicated that he did get confused yesterday. He said he is doing better. He is admitted with sepsis and generalized weakness. He also had some dehydration. REVIEW OF SYSTEMS: Indicate that this patient has urinary symptoms and he is being evaluated and managed for that. He has urinary retention. He has sepsis. I do not know what his baseline mental status is, but he said he is feeling better now. A 14-point review of systems was carried out. He has a history of coronary artery disease, diabetes, liver function abnormalities, sepsis, urinary tract infection, high cholesterol, kidney surgery, cataract surgery, skin cancer, sinus surgery, TN with stent placement. This was his relevant 14-point review of system. PAST MEDICAL HISTORY: Negative for any stroke. FAMILY HISTORY: Negative for early age stroke. SOCIAL HISTORY: He indicates he has smoked in the past, but does not smoke now. He does not drink alcohol. PHYSICAL EXAMINATION: NEUROLOGIC: Indicate he is alert. He is responsive. He can follow simple commands. His speech looks mostly intact. Cranial nerve examinations appear unremarkable. He said he cannot appreciate the position sense in the lower extremities. His reflexes are diminished. His tone looks symmetrical. Strength looks somewhat diminished, but in generalized fashion. He does have trouble with [id number]. I could not look at the patient's fundus. There is no thyroid mass. There is no carotid bruit. CARDIAC: Unremarkable. LUNGS: He does not have any respiratory difficulty. VITAL SIGNS: Blood pressure is 140/68, respiration is 18, pulse is 69, temperature is 98.4. LABORATORY DATA: White count today is 10.4. He did have a CT scan of the head, which does [place] any [place] [address] CONSULTATION Name: MANI ALANIZ Room: [address] IN [facility]#: [id number] Admission: 08/11/19 Attend Phys: Chayo Liao Discharge: Date of : 38 Report #: [id number] IMPRESSION: This patient most likely has encephalopathy. He is becoming better. The patient with renal problem sometime gets symptoms of impaired thiamine utilization and we will give him thiamine. I will get an MRI just to make sure there is no pathology because CT has shown chronic changes and then decide about further management after that. Thank you very much for this referral. By: [id number] Burgos MD /helena
[2019-08-11 16:52] VITALS: BP 120/60
[2019-08-11 17:30] LABS: HEMATOCRIT 42.2 % (42.0-52.0); HEMOGLOBIN 14.6 gm/dL (14.0-18.0); MCH 28.9 pg (26.0-34.0); MCHC 34.5 g/dL (28.0-37.0); MCV 83.6 fL (80.0-100.0); MPV 9.6 fl. (7.2-11.1); NUCLEATED RBCS 0 /100WBC; PLATELET COUNT* 129 thou/uL (150-400); RBC 5.05 mil/uL (4.50-6.00); RDW-CV 15.1 % (10.5-14.5); WBC 15.3 thou/uL (4.0-11.0)
[2019-08-11 17:40] LABS: CALCIUM 8.8 mg/dL (8.5-10.1); CREATININE 1.2 mg/dL (0.6-1.3); POTASSIUM 4.1 mmol/L (3.5-5.1)
[2019-08-11 17:41] LABS: APTT 28.8 Seconds (25.0-31.3); INR 1.1; PROTIME 11.1 Seconds (9.20-11.50)
[2019-08-11 17:48] LABS: ALBUMIN 3.5 g/dL (3.4-5.0); TOTAL BILIRUBIN 1.1 mg/dL (<0.1-1.0); TOTAL PROTEIN 6.9 g/dL (6.4-8.2)
[2019-08-11 18:02] LABS: ABSOLUTE LYMPHOCYTES 1.5 thou/uL (0.8-5.3); ABSOLUTE MONOCYTES 1.1 thou/uL (0.0-1.2); ABSOLUTE NEUTROPHILS 12.7 thou/uL (1.6-8.1); ANISOCYTOSIS Occasional; ATYPICAL LYMPHS 2 %; PLATELET ESTIMATE ADEQUATE
[2019-08-11 18:21] LABS: INFLUENZA A ANTIGEN Negative (Negative); INFLUENZA B ANTIGEN Negative (Negative)
[2019-08-11 18:56] LABS: URINE BILIRUBIN NEGATIVE (Negative); URINE BLOOD TRACE (Negative); URINE CLARITY SL CLOUDY; URINE COLOR YELLOW; URINE GLUCOSE-RANDOM 1+ (Negative); URINE KETONES NEGATIVE (Negative); URINE LEUKOCYTES-REFLEX 1+ (Negative); URINE PROTEIN 2+ (Negative); URINE SPECIFIC GRAVITY 1.025 (1.005-1.030)
[2019-08-11 18:57] LABS: URINE NITRITE-REFLEX POSITIVE (Negative)
[2019-08-11 19:14] LABS: BACTERIA-REFLEX >30 Many /HPF (None Seen); CASTS None Seen /LPF (None Seen); CRYSTALS None Seen /LPF (None Seen); MUCUS >6 Heavy strn/LPF (None Seen); SQUAMOUS 0-3 Few /LPF (0-3); URINE RBC 0-2 Rare /HPF (0-2); URINE WBC-REFLEX >25 Many /HPF (0-5); WBC CLUMPS Moderate (None Seen)
[2019-08-11 20:39] VITALS: BP 138/65
[2019-08-11 21:00] VITALS: BP 107/54
[2019-08-12] VITALS: BP 104/53
[2019-08-12 04:00] VITALS: BP 102/48
[2019-08-12 08:00] VITALS: BP 107/56
[2019-08-12 12:24] VITALS: BP 125/67
[2019-08-12 17:21] VITALS: BP 122/58
[2019-08-12 20:15] VITALS: BP 103/33
[2019-08-13] VITALS: BP 123/59
[2019-08-13 04:00] VITALS: BP 120/60
[2019-08-13 04:06] LABS: GLYCOHEMOGLOBIN (HGB A1C) 7.8 % (4.8-5.6)
--- NOTE | 2019-08-13 05:23 | NUR ---
PT SLEPT MOST OF SHIFT. ASSESSMENT DOCUMENTED. MEDS GIVEN PER E-MAR. IV PATENT, FLUIDS INFUSING. NO REPORTS OF PAIN. FALL PRECAUTIONS IN PLACE. WILL CONTINUE WITH PLAN OF CARE.
[2019-08-13 08:00] VITALS: BP 110/49
--- NOTE | 2019-08-13 08:38 | EKG ---
[place] [address] ELECTROCARDIOGRAM REPORT Name: MANI ALANIZ Room: [address] ADM [place] .R.#: [id number] Admission: 08/11/19 Attend Phys: Chayo Liao Discharge: Date of : 38 Report #: [id number] THIS REPORT FOR: //name// [facility] ED Test Date: 2019-08-11 Test Time: 17:04:16 Pat Name: MANI ALANIZ Department: Room: [facility] Gender: M Logistics Specialist: : 1940 Requested By: Nate Hale Order Number: [id number] MD: Ajit Bray Measurements Intervals [place] Rate: 93 P: 11 MI: 167 QRS: 46 QRSD: 120 T: 87 QT: 348 QTc: 433 Interpretive Statements Sinus rhythm Probable left atrial enlargement Nonspecific intraventricular conduction delay Inferior infarct, old Compared to ECG 09/06/2018 15:52:17 Myocardial infarct finding still present Electronically Signed On 08-13-2019 8:37:41 WEB PROJECT MANAGER by Ajit Bray [email or web address] <ELECTRONICALLY SIGNED> By: Ajit Bray MD, FAC 08/13/19 0837 1704 1704 Ajit Bray MD, [facility] /EPI
--- NOTE | 2019-08-13 11:24 | NUR ---
Pt is A&O. Resides at home with , in room at bedside. Pt is normally independent, but states that Pt has been so weak, that he hasn't been able to ambulate. They have a walker, wc and cane at home, but Pt had not required any of them. Hx of outpt therapy. No hx of HH or SNF. Pt and want Pt to return home at dc, not open to skilled. CM to make sure therapies have been ordered. Following.
[2019-08-13 12:05] VITALS: BP 117/62
[2019-08-13 13:57] LABS: ABSOLUTE EOSINOPHILS 0.2 thou/uL (0.0-0.7); ABSOLUTE MONOCYTES 0.6 thou/uL (0.0-1.2); ABSOLUTE NEUTROPHILS 8.5 thou/uL (1.6-8.1); BASOPHILS 0.4 %; EOSINOPHILS 2.4 %; HEMATOCRIT 37.5 % (42.0-52.0); HEMOGLOBIN 13.1 gm/dL (14.0-18.0); LYMPHOCYTES 9.2 %; MCHC 34.8 g/dL (28.0-37.0); MCV 83.3 fL (80.0-100.0); MONOCYTES 6.1 %; MPV 9.4 fl. (7.2-11.1); NUCLEATED RBCS 0 /100WBC; PLATELET COUNT* 93 thou/uL (150-400); POLYS 81.9 %; RDW-CV 15.4 % (10.5-14.5); WBC 10.4 thou/uL (4.0-11.0)
[2019-08-13 14:07] LABS: ALBUMIN 2.6 g/dL (3.4-5.0); POTASSIUM 3.7 mmol/L (3.5-5.1); TOTAL BILIRUBIN 0.4 mg/dL (<0.1-1.0); TOTAL PROTEIN 6.2 g/dL (6.4-8.2)
[2019-08-13 14:27] LABS: URINE BILIRUBIN NEGATIVE (Negative); URINE BLOOD NEGATIVE (Negative); URINE CLARITY CLEAR; URINE COLOR YELLOW; URINE GLUCOSE-RANDOM NEGATIVE (Negative); URINE KETONES NEGATIVE (Negative); URINE LEUKOCYTES NEGATIVE (Negative); URINE NITRITE NEGATIVE (Negative); URINE PROTEIN TRACE (Negative); URINE SPECIFIC GRAVITY 1.025 (1.005-1.030); URINE UROBILINOGEN 0.2 E.U./dl (0.2-1.0)
--- NOTE | 2019-08-13 17:10 | NUR ---
pt remained alert and oriented. pt resting in bed. bliss placed per orders. fall risk precautions in place. hourly rounding completed. will continue to monitor.
[2019-08-13 18:01] VITALS: BP 135/66
[2019-08-13 19:50] VITALS: BP 134/70
--- NOTE | 2019-08-14 05:33 | NUR ---
PT ALERT AND ORIENTED. VSS ON 2L NC. MEDS GIVEN PER EMAR. PT SLEPT MOST OF SHIFT. DENIES PAIN N/V. ROMANO IN PLACE. FALL PRECAUTION IN PLACE. CALL LIGHT WITHIN REACH. HOURLY ROUNDINGS MADE. WILL CONTINUE PLAN OF CARE.
[2019-08-14 07:21] VITALS: BP 140/68
--- NOTE | 2019-08-14 18:28 | NUR ---
ASSESSMENT COMPLETE. PT ALERT AND ORIENTED X4. FAMILY AT BEDSIDE THROUGHOUT THE DAY. MRI SCHEDULED FOR TONIGHT. ACCU CHECK ACHS. PT/OT ORDERED. PT DENIES PAIN. TOLERATING MEALS. ROMANO IN PLACE. SEE ASSESSMENT AND VITALS FOR OTHER DETAILS. CALL LIGHT WITHIN REACH, WILL CONTINUE PLAN OF CARE
[2019-08-14 20:00] VITALS: BP 156/75
[2019-08-15 04:32] LABS: HEMATOCRIT 37.5 % (42.0-52.0); HEMOGLOBIN 13.1 gm/dL (14.0-18.0); MCH 28.7 pg (26.0-34.0); MCHC 35.1 g/dL (28.0-37.0); MCV 81.9 fL (80.0-100.0); MPV 9.1 fl. (7.2-11.1); RBC 4.58 mil/uL (4.50-6.00); WBC 5.8 thou/uL (4.0-11.0)
[2019-08-15 05:04] LABS: ALBUMIN 2.3 g/dL (3.4-5.0); CALCIUM 7.8 mg/dL (8.5-10.1); CREATININE 0.8 mg/dL (0.6-1.3); POTASSIUM 3.6 mmol/L (3.5-5.1); TOTAL BILIRUBIN 0.4 mg/dL (<0.1-1.0); TOTAL PROTEIN 5.8 g/dL (6.4-8.2)
--- NOTE | 2019-08-15 06:34 | NUR ---
PATIENT SLEPT MOST OF THE NIGHT. ROMANO REMAINS TO DEPENDENT DRAIN. PATIENT HAD NO COMPLAINTS OF PAIN. WILL CONTINUE TO MONITOR.
[2019-08-15 07:03] VITALS: BP 154/69
--- NOTE | 2019-08-15 16:52 | NUR ---
ASSESSMENT COMPLETE. PT ALERT AND ORIENTED X4. PT IS FORGETFUL AT TIMES. ROSALINA DC'D TONIGHT TO START VOIDING TRIAL PER DR QUINN. PT IS UP STANDBY ASSIST. FALL RISK, BED ALARM IN PLACE. PT/OT WITH PATIENT TODAY. ACCU CHECK ACHS. PT DENIES PAIN. TOLERATING MEALS. LEFT FA, SL. SEE ASSESSMENT AND VITALS FOR OTHER DETAILS. CALL LIGHT WITHIN REACH, WILL CONTINUE PLAN OF CARE
[2019-08-15 17:39] VITALS: BP 169/83
[2019-08-15 21:00] VITALS: BP 141/75
--- NOTE | 2019-08-16 06:33 | NUR ---
PATIENT SLEPT MOST OF THE NIGHT. IV REMAINS SALINE LOCKED. PATIENT HAS BEEN VOIDING GOOD AMOUNTS OF URINE SINCE CATHETER WAS TAKEN OUT POST VOID RESIDUAL HIGHEST AMOUNT WAS 246. PATIENT HAS VOIDED A TOTAL OF 1210 ML OF URINE TONIGHT. PATIENT IS JUST CONCERNED BECAUSE HE IS HAVING URGENCY AND FREQUENCY. PATIENT IS POSSIBLY GOING HOME TODAY. WILL CONTINUE TO MONITOR.
[2019-08-16 07:45] VITALS: BP 127/56
[2019-08-16] MEDS ORDERED: PROSCAR 5MG TABL5 M1 PO (15:59)
[2019-08-16] MEDS ORDERED: FLOMAX0.4 MG PO (16:00)
[2019-08-16] MEDS ORDERED: CEFDINIR300 MG PO (16:00)
[2019-08-16] MEDS ORDERED: FOLIC ACID1 MG PO (16:05)
[2019-08-16] MEDS ORDERED: VITAMIN B125000 MCG PO (16:05)
[2019-08-16 16:16] VITALS: BP 127/56
--- NOTE | 2019-08-16 17:23 | NUR ---
P[T A&OX4 VSS. PT PVR X 1 0930, 134 ML NOTED. NO ROMANO NEEDED PER PHYSICIAN. PT USES URINAL AT BEDSIDE. PT IS ACCUCHECK, INSULIN ADMINISTERED INDICATED. PT CLEARED BY TEMITOPE FOR DC ONCE DR QUINN ROUNDS AND APPROVES. PT RESTS IN ROOM WITH CALL LIGHT IN REACH. PT ON CARB CONTROL DIET. PT IV DC'D PRIOR TO LEAVING UNIT. NO REDNESS/BLEEDING NOTED AT SITE. PT AND SPOUSE STATE UNDERSTANDING OF DC INSTRUCTIONS AND RX INFORMATION PROVIDED. PT DRESSED INDEPENDENTLY. PT AMBULATED TO RESTROOM, SBA PRIOR TO LEAVING UNIT. PT TRANSPORTED TO FRONT ENTRANCE IN , TOOK PT BELONGINGS TO VEHICLE PRIOR TO DC.
== END 2019-08-16 17:22 | disposition home or self-care (01) | DRG 871 ==
LOC: M.ERS 16:52 → M.2W 18:35 → M.TBA-ER 18:35 → M.2W 21:15 → M.3W 08-13 14:50
PROVIDERS: Family Medicine; Internal Medicine; Nurse Practitioner Family; ADMIT Internal Medicine
DX: A41.9 Sepsis, unspecified organism (principal); J96.01 Acute respiratory failure with hypoxia; N30.01 Acute cystitis with hematuria; E78.00 Pure hypercholesterolemia, unspecified; E11.65 Type 2 diabetes mellitus with hyperglycemia; R27.0 Ataxia, unspecified; E11.40 Type 2 diabetes mellitus with diabetic neuropathy, unspecified; I25.10 Atherosclerotic heart disease of native coronary artery without angina pectoris; E86.0 Dehydration; I10 Essential (primary) hypertension; N40.1 Benign prostatic hyperplasia with lower urinary tract symptoms; R33.8 Other retention of urine; B96.20 Unspecified Escherichia coli [E. coli] as the cause of diseases classified elsewhere; I25.2 Old myocardial infarction; Z95.5 Presence of coronary angioplasty implant and graft; Z87.442 Personal history of urinary calculi; Z98.41 Cataract extraction status, right eye; Z98.42 Cataract extraction status, left eye; Z85.828 Personal history of other malignant neoplasm of skin; Z79.899 Other long term (current) drug therapy; Z79.82 Long term (current) use of aspirin; Z79.84 Long term (current) use of oral hypoglycemic drugs; Z79.4 Long term (current) use of insulin; Z87.440 Personal history of urinary (tract) infections; Z82.49 Family history of ischemic heart disease and other diseases of the circulatory system; Z83.3 Family history of diabetes mellitus